=== PATIENT | female | born 1935 | race Caucasian/White ===

== ENCOUNTER → 2022-11-22 13:19 | Outpatient (BNVA) | payer MEDICARE, OTHER, SELFPAY | PROVIDERS: PCP Nurse Practitioner; Visit Provider Internal Medicine Endocrinology, Diabetes & Metabolism | DX: E03.9 Hypothyroidism, unspecified (principal) | CPT/HCPCS: 99202 ==

== ENCOUNTER 2023-11-22 09:03 | Outpatient (AMB) | payer MEDICARE, OTHER, SELFPAY ==
--- NOTE | 2023-11-22 09:06 | A.OFFVIS_ITS ---
Intake Vital Signs 11/22/23 09:07 Height 5 ft Weight 184 lb 15.485 oz BMI 36.1 BP 126/62 Blood Pressure Location Lt brachial Position Sitting Pulse 50 Pulse Source Pulse Oximeter Intake Visit Reasons: f/u hypothyroidism-lvm Intake Note: Patient present today for Hypothyroidism follow up visit. Production Administrator Required: No Accompanied by: Self / Same As Patient Allergies Penicillins Allergy (Intermediate, Verified 11/22/23 09:14) Unknown HPI HPI Comments History of Present Illness Details 88 YO F with who is seen in consultation at the request of his PCP for Hyothyroidism and substernal goiter .Saw Dr. Espinal at [facility] First diagnosed with Hypothyroidism many yrs ago Currently using levothyroxine 50 mcg. Denies -fatigue, -weight gain, -cold intolerance, +dry skin, -hair loss, - constipation. There is no hx of hyperlipidemia . Denies obstructive sx of goiter . Denies consuming any kelp or seaweed. Denies taking amiodarone. Biotin: No No family hx of thyroid problems Labs: Recent ultrasound showed the absence of any thyroid nodules PFSH Medical History (Updated 11/22/22 @ 14:02 by Adan Beltran MD) Hypothyroidism Surgical History (Updated 11/22/22 @ 13:36 by ETHAN Bowman) Hx of oral surgery Social History (Updated 11/22/22 @ 13:37 by ETHAN Bowman) Household Members: None Housing: [facility] Housing Other:: [facility] home community, live in [address] [place] [address] Physical Exam HEENT reveals absence of lid lag , stare or proptosis or eyebrow loss. Thyroid gland measure gms . No nodules or tenderness palpated. There is no cervical adenopathy palpated. Lungs CTA. Heart S1, S2 Reg R/R -M/R/G. Abdominal exam benign. Skin exam reveals absence of dryness or thyroid dermopathy or vitiligo. Nail exam reveals absence of thyroid acropachy or oncholysis. Neurologic exam reveals 2+ reflexes . Muscle Strength is 5/5 proximally. There are no tremors in upper extremities. 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 She is currently be replaced with 50 mcg levothyroxine. She appears to be clinically euthyroid. Plan is check a TSH and free T4 and adjust levothyroxine accordingly. If TSH is normal , patient can follow up with her primary care provider and returned back to endocrinology as needed Coding Level of Care Code Est Pt Level 3 (77170) Diagnoses Hypothyroidism E03.9
[2023-11-22 09:07] VITALS: BP 126/62; PULSE 50; BMI 36.1
== END 2023-11-22 09:20 | disposition home or self-care (01) ==
PROVIDERS: PCP Nurse Practitioner; Visit Provider Internal Medicine Endocrinology, Diabetes & Metabolism
DX: E03.9 Hypothyroidism, unspecified (principal)
CPT/HCPCS: 99213

== ENCOUNTER → 2023-11-22 09:03 | Outpatient (BNVA) | payer MEDICARE, OTHER, SELFPAY | PROVIDERS: Visit Provider Internal Medicine Endocrinology, Diabetes & Metabolism | DX: E03.9 Hypothyroidism, unspecified (principal) | CPT/HCPCS: 99212 ==